=== PATIENT | male | born 1965 | race Two or more races ===

== ENCOUNTER 2022-06-16 08:58 | Day surgery (SDC) | payer OTHER ==
[2022-06-13 09:29] VITALS: BMI 25.8
[2022-06-16 10:54] VITALS: RESP 16; TEMP 97.8
[2022-06-16 11:28] VITALS: BP 103/57; PULSE 60
== END 2022-06-16 11:15 | disposition home or self-care (01) ==
LOC: FASU-ENDO 08:58
PROVIDERS: ATTEND Internal Medicine Gastroenterology
PROC: 0DB68ZX Excision of Stomach, Via Natural or Artificial Opening Endoscopic, Diagnostic (ICD-10-PCS; 2022-06-16)
PROC: 0DB98ZX Excision of Duodenum, Via Natural or Artificial Opening Endoscopic, Diagnostic (ICD-10-PCS; principal; 2022-06-16 10:28)
DX: K29.50 Unspecified chronic gastritis without bleeding (principal); K29.80 Duodenitis without bleeding; R12 Heartburn
CPT/HCPCS: 88305-TC; 88342-TC

== ENCOUNTER 2023-03-02 07:54 | Day surgery (SDC) | payer OTHER ==
[2023-02-26 10:54] VITALS: BMI 26.2
[2023-03-02 08:14] VITALS: RESP 18
[2023-03-02 09:26] VITALS: TEMP 97.4
[2023-03-02 09:55] VITALS: BP 110/54; PULSE 64
== END 2023-03-02 09:52 | disposition home or self-care (01) ==
LOC: FASU-ENDO 07:54
PROVIDERS: ATTEND Internal Medicine Gastroenterology
PROC: 0DBP8ZX Excision of Rectum, Via Natural or Artificial Opening Endoscopic, Diagnostic (ICD-10-PCS; principal; 2023-03-02 09:02)
DX: Z12.11 Encounter for screening for malignant neoplasm of colon (principal); K52.89 Other specified noninfective gastroenteritis and colitis; K57.30 Diverticulosis of large intestine without perforation or abscess without bleeding; Z87.19 Personal history of other diseases of the digestive system
CPT/HCPCS: 88305-TC